=== PATIENT | male | born 1940 | race American Indian/Alaskan Native ===

== ENCOUNTER 2022-01-16 11:46 | Emergency (ER) | payer MEDICARE ==
--- NOTE | 2022-01-16 12:51 | Emergency Department Report ---
HPI - General Chief Complaint: Urogenital-Male Time Seen by Provider: 01/16/22 12:32 - HPI HPI: Room 18 The patient is an 81-year-old male present with chief complaint of urinary retention. Patient has a history of prostate CA status post brachytherapy and TURP. Patient states he has not been able to urinate since 06: 30 this morning. Patient presents with severe lower abdominal pain. Patient has nausea but denies vomiting. There is no history of fever. Patient is followed by urologist Dr. Cruz ED Past Medical Hx - Past Medical History Previous Medical History?: Yes Hx Hypertension: Yes Hx Heart Attack/AMI: Yes Hx Diabetes: Yes (no meds) Hx Deep Vein Thrombosis: Yes (2000) Hx of Cancer: Yes (prostate) Hx Arthritis: Yes Additional medical history: CAD - Surgical History Past Surgical History?: Yes Hx Open Heart Surgery: Yes Additional Surgical History: I-25 Seed implant, TURP - Family History Family history: no significant - Social History Smoking Status: Never Smoker Substance Use Type: None (Denies illicit drug use) - Medications Home Medications: Home Medications Medication Instructions Recorded Confirmed Last Taken Type Tamsulosin [Flomax] 0.4 mg PO QDAY #30 cap 01/16/22 Unknown Rx levoFLOXacin [Levaquin TAB] 500 mg PO QDAY #10 tablet 01/16/22 Unknown Rx ED Review of Systems ROS: Stated complaint: PAIN/UNABLE TO URINATE Other details as noted in HPI Constitutional: denies: fever Eyes: denies: eye pain ENT: denies: throat pain Respiratory: no symptoms reported Cardiovascular: denies: chest pain Endocrine: no symptoms reported Gastrointestinal: abdominal pain, nausea. denies: vomiting Genitourinary: other (Urinary retention) Musculoskeletal: denies: back pain Neurological: denies: headache Physical Exam - Physical Exam Vital Signs: Vital Signs 01/16/22 11:54 Temperature 98.0 F Pulse Rate 87 Respiratory 18 Rate Blood Pressure 180/103 O2 Sat by Pulse 98 Oximetry Physical Exam: GENERAL: The patient is well-developed well-nourished male lying on stretcher not appearing to be in acute distress. [] HEENT: Normocephalic. Atraumatic. Extraocular motions are intact. Patient has moist mucous membranes. NECK: Supple. Trachea midline CHEST/LUNGS: Clear to auscultation. There is no respiratory distress noted. HEART/CARDIOVASCULAR: Regular. There is no tachycardia. There is no gallop rub or murmur. ABDOMEN: Abdomen is soft, with suprapubic tenderness to palpation.. Patient has normal bowel sounds. There is no abdominal distention. SKIN: There is no rash. There is no edema. There is no diaphoresis. NEURO: The patient is awake, alert, and oriented. The patient is cooperative. The patient has no focal neurologic deficits. The patient has normal speech. GCS 15 MUSCULOSKELETAL: There is no evidence of acute injury. ED Course Vital Signs 01/16/22 11:54 Temperature 98.0 F Pulse Rate 87 Respiratory 18 Rate Blood Pressure 180/103 O2 Sat by Pulse 98 Oximetry - Reevaluation(s) Reevaluation #1: 01/16/22 13:30 The patient was able to void in between Yu catheter placement attempts. Diana ent is now comfortable. I will contact the patient's urologist to discuss the case and disposition - Consultations Consultation #1: 01/16/22 13:37 Urology paged 01/16/22 13:[address] Cruz-recommend giving dose of Flomax here and given patient prescription. Patient should follow-up in the office ED Medical Decision Making - Lab Data Laboratory Tests 01/16/22 Unknown Urine Color Yellow Urine Turbidity Turbid Urine pH 6.0 Ur Specific [place] 1.011 Urine Protein 100 mg/dl Urine Glucose (UA) Neg Urine Ketones Neg Urine Blood Lg Urine Nitrite Neg Urine Bilirubin Neg Urine Urobilinogen < 2.0 Ur Leukocyte Esterase Lg Urine WBC (Auto) > 182.0 H Urine RBC (Auto) > 182.0 U Epithel Cells (Auto) 1.0 Urine Bacteria (Auto) 4+ Urine WBC Clumps 3+ - Differential Diagnosis Urinary retention, UTI Critical care attestation.: If time is entered above; I have spent that time in minutes in the direct care of this critically ill patient, excluding procedure time. ED Disposition Clinical Impression: Urinary retention, UTI (urinary tract infection) Disposition: 01 HOME / SELF CARE / HOMELESS Is pt being admited?: No Does the pt Need Aspirin: No Condition: Stable Instructions: Acute Urinary Retention, Male Additional Instructions: Return to the emergency department should you develop worsening symptoms, inability to tolerate food or liquids, high fever or any other concerns Prescriptions: Tamsulosin [Flomax] 0.4 mg PO QDAY #30 cap levoFLOXacin [Levaquin TAB] 500 mg PO QDAY #10 tablet Referrals: NICK CRUZ MD [Staff Physician] - 3-5 Days Time of Disposition: 14:06
[2022-01-16] MEDS ORDERED: TAMSULOSIN 0.4 MG CAP PO ONE (13:47)
[2022-01-16 13:53] LABS: Bacteria,Urine 4+ /HPF (Negative); Bilirubin,Urine NEG (Negative); Blood,Urine LG (Negative); Color,Urine Yellow (Yellow); Urobilinogen,Urine < 2.0 mg/dL (<2.0)
[2022-01-16 13:54] LABS: RBC,Urine > 182.0 /HPF (0.0-6.0); WBC,Urine > 182.0 /HPF (0.0-6.0)
[2022-01-16] MEDS ORDERED: levoFLOXacin 500 MG TAB PO ONE (14:04)
[2022-01-16 14:33] VITALS: BP 141/80
== END 2022-01-16 14:36 | disposition home or self-care (01) ==
LOC: ED 11:46
DX: N39.0 Urinary tract infection, site not specified (principal); R33.9 Retention of urine, unspecified; I10 Essential (primary) hypertension; I21.9 Acute myocardial infarction, unspecified; E11.9 Type 2 diabetes mellitus without complications; I82.409 Acute embolism and thrombosis of unspecified deep veins of unspecified lower extremity; Z85.9 Personal history of malignant neoplasm, unspecified; M19.90 Unspecified osteoarthritis, unspecified site; Z79.899 Other long term (current) drug therapy
CPT/HCPCS: 81001; 87086; 99283